=== PATIENT | male | born 1985 | race African-American/Black ===

== ENCOUNTER 2016-07-09 14:02 | Emergency (ER) | payer BC, OTHER ==
--- NOTE | 2016-07-09 14:12 | ER Document Report ---
ED Medical Screen (RME) - General Stated Complaint: POSSIBLE SINUS PROBLEMS Mode of Arrival: Ambulatory Information source: Patient Notes: Patient presents to the emergency department with complaint sinus pain. Reports he's had sinus issues as normal. Reports running a fever last night and cannot get rid of the headache.Took OTC claritan and eye drops without relief of sx. I have greeted and performed a rapid initial assessment of this patient. A comprehensive ED assessment and evaluation of the patient, analysis of test results and completion of the medical decision making process will be conducted by additional ED providers.
[2016-07-09 14:14] VITALS: BP 140/96
--- NOTE | 2016-07-09 14:54 | ER Document Report ---
ED ENT - General Chief Complaint: Sinus Congestion Stated Complaint: POSSIBLE SINUS PROBLEMS Mode of Arrival: Ambulatory Notes: The patient is a 31-year-old male who presents with 3 days sinus congestion and 2 days of clear drainage and redness from his left eye. He took a Claritin without much relief of his symptoms. He denies blurry vision, foreign body sensation in eye, headache, difficulty swallowing, fevers, numbness, tingling, neck pain, chest pain or shortness of breath. TRAVEL OUTSIDE OF THE [place] IN LAST 30 DAYS: No - Related Data Allergies/Adverse Reactions: No Known Allergies Allergy (Unverified 07/09/16 14:14) Past Medical History - General Information source: Patient - Social History Smoking Status: Current Every Day Smoker Chew tobacco use (# tins/day): No Frequency of alcohol use: None Drug Abuse: None Family History: Reviewed & Not Pertinent Renal/ Medical History: Denies: Hx Peritoneal Dialysis Review of Systems - Review of Systems Notes: REVIEW OF SYSTEMS: CONSTITUTIONAL: -fevers, -chills EENT: +left eye discharge, -difficulty swallowing, +nasal congestion CARDIOVASCULAR: -chest pain, -syncope. RESPIRATORY: -cough, -SOB GASTROINTESTINAL: -abdominal pain, -nausea, -vomiting, -diarrhea GENITOURINARY: -dysuria, -hematuria MUSCULOSKELETAL: -back pain, -neck pain SKIN: -rash or skin lesions. HEMATOLOGIC: -easy bruising or bleeding. LYMPHATIC: -swollen, enlarged glands. NEUROLOGICAL: -altered mental status or loss of consciousness, -headache, - neurologic symptoms PSYCHIATRIC: -anxiety, -depression. ALL OTHER SYSTEMS REVIEWED AND NEGATIVE. Physical Exam - Vital signs Vitals: Temp Pulse Resp BP Pulse Ox 98.2 F 103 H 18 140/96 H 97 07/09/16 14:12 07/09/16 14:12 07/09/16 14:12 07/09/16 14:12 07/09/16 14:12 - Notes Notes: PHYSICAL EXAMINATION: GENERAL: Well-appearing, well-nourished and in no acute distress. HEAD: Atraumatic, normocephalic. EYES: Left conjunctival injection with cleared discharge. Fluorescein exam does not reveal any abrasions or ulcers. Pupils equal round and reactive to light, extraocular movements intact, sclera anicteric. ENT: Swollen nasal turbinates. Bilateral maxillary tenderness. Nares patent, oropharynx clear without exudates. Moist mucous membranes. NECK: Normal range of motion, supple without lymphadenopathy LUNGS: Breath sounds clear to auscultation bilaterally and equal. No wheezes rales or rhonchi. HEART: Regular rate and rhythm without murmurs ABDOMEN: Soft, nontender, normoactive bowel sounds. No guarding, no rebound. No masses appreciated. EXTREMITIES: Normal range of motion, no pitting or edema. No cyanosis. NEUROLOGICAL: Cranial nerves grossly intact. Normal speech, normal gait. Normal sensory, motor, and reflex exams. PSYCH: Normal mood, normal affect. SKIN: Warm, Dry, normal turgor, no rashes or lesions noted. Course - Re-evaluation Re-evalutation: Patient appears well. No increased blurry vision, but told him to see slag worker because his vision is 20/40 in both eyes. Instructed him about management of sinus congestion and conjunctivitis. He understands. Given return precautions. - Vital Signs Vital signs: Temp Pulse Resp BP Pulse Ox 98.2 F 103 H 18 140/96 H 97 07/09/16 14:12 07/09/16 14:12 07/09/16 14:12 07/09/16 14:12 07/09/16 14:12 Discharge - Discharge Clinical Impression: Sinus congestion Conjunctivitis Qualifiers: Conjunctivitis type: acute Acute conjunctivitis type: unspecified Laterality: left Qualified Code(s): H10.32 - Unspecified acute conjunctivitis, left eye Condition: Good Disposition: HOME, SELF-CARE Additional Instructions: Conjunctivitis You have an infection in your eye, commonly known as "pink eye." Conjunctivitis causes redness, mild discomfort, itching, and mattering on the eyelids. It is very contagious, so you must be careful to wash your hands after touching your face so you don't pass the infection on to others. Conjunctivitis is caused by both viruses and bacteria. It usually responds quickly to treatment with antibiotic drops. These should be placed in the eye as prescribed (usually every three to four hours while you're awake). If you wear contact lenses, don't put them in your eyes until the infection is cleared and you are no longer using the drops (unless your doctor advises you otherwise). Should you develop increasing eye pain, severe swelling, decreased vision, or fail to improve as expected, please return for re-examination. Sinusitis You have sinusitis, an infection of the sinus cavities of the face. The sinuses are air-filled chambers which open into the inside of the nose. Bacteria and pus fill a sinus, causing pain, drainage, and fever. Avoid chemical fumes, pollens, dusts, and smoke (especially cigarette smoke ). Keep the air humidified in your bedroom and work area and take plenty of liquids by mouth. This condition can be serious if the infection spreads. If your symptoms worsen, or if you develop severe headache, high fever, stiff neck, or a rash, you must call the doctor or return for re-evaluation. Prescriptions: Erythromycin Base [E-Mycin 0.5% Oph Oint 1 gm Unit Dose] 1 applic OS Q8H 7 Days Fluticasone Propionate [Flonase Nasal [place] 50 Mcg/[place] 16 gm] 2 sprays NASL Q12 #1 inhaler Referrals: LANA DE JESUS DO [ACTIVE STAFF] - Follow up as needed
== END 2016-07-09 16:04 | disposition home or self-care (01) ==
LOC: ER 14:02
DX: R09.81 Nasal congestion (principal); H10.32 Unspecified acute conjunctivitis, left eye; F17.200 Nicotine dependence, unspecified, uncomplicated
CPT/HCPCS: 99283

== ENCOUNTER 2016-12-23 16:19 | Emergency (ER) | payer SELFPAY ==
--- NOTE | 2016-12-23 16:52 | ER Document Report ---
ED General - General Chief Complaint: Dog Bite Stated Complaint: POSSIBLE DOG BITE Time Seen by Provider: 12/23/16 16:46 Mode of Arrival: Ambulatory Information source: Patient Notes: 31-year-old male presents with dog bite to left calf. Patient notes the dog is actually known to him he does not want to get the ulnar in trouble, patient denies any other injuries tetanus is up-to-date TRAVEL OUTSIDE OF THE [place] IN LAST 30 DAYS: No - HPI Onset: Just prior to arrival Onset/Duration: Sudden Quality of pain: Achy Severity: Mild Pain Level: 1 Associated symptoms: Other Exacerbated by: Denies Relieved by: Denies Similar symptoms previously: No Recently seen / treated by doctor: No - Related Data Allergies/Adverse Reactions: No Known Allergies Allergy (Verified 12/23/16 16:23) Past Medical History - Social History Smoking Status: Never Smoker Cigarette use (# per day): No Chew tobacco use (# tins/day): No Smoking Education Provided: No Family History: Reviewed & Not Pertinent Renal/ Medical History: Denies: Hx Peritoneal Dialysis Review of Systems - Review of Systems Notes: REVIEW OF SYSTEMS: CONSTITUTIONAL : Denies fever, chills, or sweats. Denies recent illness. EENT: Denies eye, ear, throat, or mouth pain or symptoms. Denies nasal or sinus congestion or discharge. Denies throat, tongue, or mouth swelling or difficulty swallowing. CARDIOVASCULAR: Denies chest pain. Denies palpitations or racing or irregular heart beat. Denies ankle edema. RESPIRATORY: Denies cough, cold, or chest congestion. Denies shortness of breath, difficulty breathing, or wheezing. GASTROINTESTINAL: Denies abdominal pain or distention. Denies nausea, vomiting , or diarrhea. Denies blood in vomitus, stools, or per rectum. Denies black, tarry stools. Denies constipation. GENITOURINARY: Denies difficulty urinating, painful urination, burning, frequency, blood in urine, or discharge. MUSCULOSKELETAL: Denies back or neck pain or stiffness. Denies joint pain or swelling. SKIN: Dog bite HEMATOLOGIC : Denies easy bruising or bleeding. LYMPHATIC: Denies swollen, enlarged glands. NEUROLOGICAL: Denies confusion or altered mental status. Denies passing out or loss of consciousness. Denies dizziness or lightheadedness. Denies headache. Denies weakness or paralysis or loss of use of either side. Denies problems with gait or speech. Denies sensory loss, numbness, or tingling. Denies seizures. PSYCHIATRIC: Denies anxiety or stress. Denies depression, suicidal ideation, or homicidal ideation. ALL OTHER SYSTEMS REVIEWED AND NEGATIVE. Dictation was performed using [employer] voice recognition software PHYSICAL EXAMINATION: GENERAL: Well-appearing, well-nourished and in no acute distress. HEAD: Atraumatic, normocephalic. EYES: Pupils equal round and reactive to light, extraocular movements intact, sclera anicteric, conjunctiva are normal. ENT: Nares patent, oropharynx clear without exudates. Moist mucous membranes. NECK: Normal range of motion, supple without lymphadenopathy LUNGS: Breath sounds clear to auscultation bilaterally and equal. No wheezes rales or rhonchi. HEART: Regular rate and rhythm without murmurs ABDOMEN: Soft, nontender, nondistended abdomen. No guarding, no rebound. No masses appreciated. Musculoskeletal: Normal range of motion, no pitting or edema. No cyanosis. NEUROLOGICAL: Cranial nerves grossly intact. Normal speech, normal gait. Normal sensory, motor exams PSYCH: Normal mood, normal affect. SKIN: Multiple small punctures of the left calf no large wound Physical Exam - Vital signs Vitals: Temp Pulse Resp BP Pulse Ox 98.5 F 99 20 142/76 H 97 12/23/16 16:23 12/23/16 16:23 12/23/16 16:23 12/23/16 16:23 12/23/16 16:23 Course - Re-evaluation Re-evalutation: 12/23/16 17:00 Area was cleansed with Betadine extensively, patient tetanus is already up-to- date the dog is actually known to the patient Patient will be treated with antibiotics and will be given close follow-up After performing a Medical Screening Examination, I estimate there is LOW risk for OPEN FRACTURE, COMPARTMENT SYNDROME, TENDON RUPTURE, ACUTE NEUROVASCULAR INJURY, or RETAINED FOREIGN BODY, thus I consider the discharge disposition reasonable. Also, there is no evidence or peritonitis, sepsis, or toxicity. I have reevaluated this patient multiple times and no significant life threatening changes are noted. The patient and I have discussed the diagnosis and risks, and we agree with discharging home with close follow-up with the understanding that symptoms and presentations can change. We also discussed returning to the Emergency Department immediately if new or worsening symptoms occur. We have discussed the symptoms which are most concerning (e.g., changing or worsening pain, fever, numbness, weakness, cool or painful digits) that necessitate immediate return. - Vital Signs Vital signs: Temp Pulse Resp BP Pulse Ox 98.5 F 99 20 142/76 H 97 12/23/16 16:23 12/23/16 16:23 12/23/16 16:23 12/23/16 16:23 12/23/16 16:23 Discharge - Discharge Clinical Impression: Dog bite of calf Qualifiers: Encounter type: initial encounter Laterality: left Qualified Code(s): S81.852A - Open bite, left lower leg, initial encounter Condition: Stable Disposition: HOME, SELF-CARE Instructions: Animal Bites ([facility]) Additional Instructions: Follow up with your physician tomorrow for further care or return to the ED IMMEDIATELY if symptoms worsen or new concerns occur. If you cannot afford to follow up with your primary care physician a list of low cost clinics have been provided at the end of your discharge papers as well. Prescriptions: Amox Tr/Potassium Clavulanate [Augmentin 875-125 Tablet] 1 tab PO BID 10 Days tablet Forms: Return to Work
[2016-12-23] MEDS ORDERED: IBUPROFEN 600 MG TABLET PO ONE (16:54)
[2016-12-23 18:24] VITALS: BP 147/80
== END 2016-12-23 17:40 | disposition home or self-care (01) ==
LOC: ER 16:19
DX: S81.852A Open bite, left lower leg, initial encounter (principal); W54.0XXA Bitten by dog, initial encounter
CPT/HCPCS: 99283

== ENCOUNTER 2016-12-25 01:16 | Emergency (ER) | payer SELFPAY ==
[2016-12-25 01:34] VITALS: BP 163/86
== END 2016-12-25 02:07 | disposition left against medical advice (07) ==
LOC: ER 01:16
DX: Z53.21 Procedure and treatment not carried out due to patient leaving prior to being seen by health care provider (principal)

== ENCOUNTER 2019-11-13 20:18 | Emergency (ER) | payer SELFPAY ==
[2019-11-14 00:03] VITALS: BP 148/86
--- NOTE | 2019-11-14 02:56 | ER Document Report ---
ED General Pain - General Chief Complaint: Pain All Over Stated Complaint: GENERAL WEAKNESS, SHORTNESS OF BREATH, CONGESTION Time Seen by Provider: 11/14/19 02:55 Mode of Arrival: Ambulatory Information source: Patient Notes: 11/14/19 01:50 - ED Nursing Note by OFELIA FREEMAN Accandi Num: [id number] : 1985 Patient Age: 34 pt presents to ed via pov with c/o chills, cough, weakness, congestion, SOB, AGUILAR, and body aches x3 days. pt states that "I just don't feel right all over". pt denies any travel or sick contact. pt rates body aches as a 4/5 on the pain scale. pt does admit to marijuana use. pt is resting in stretcher, in nad, breathing e/u. 11/14/19 03:26 - ED Nursing Note by OFELIA FREEMAN Accandi Num: [id number] : 1985 Patient Age: 34 this RN went into pt room to start IV and draw blood. pt became very agitated, stating "I don't want you or anyone else putting anything in my body, or injecting anything in my body!" this RN educated pt as to what blood tests were ordered and why they were ordered, and pt stated "I'll leave this bitch right now, I don't care". pt left room and headed towards doorway, this RN asked pt to stay and talk with the MD, pt refused. pt did sign AMA form before leaving, and this RN educated pt as to possible negative side effects of leaving AMA and to come back with any worsening symptoms. pt was escorted out of POD 5 by PCT. TRAVEL OUTSIDE OF THE [place] IN LAST 30 DAYS: No - Related Data Allergies/Adverse Reactions: No Known Allergies Allergy (Verified 12/23/16 16:23) Past Medical History - Social History Smoking Status: Current Every Day Smoker Frequency of alcohol use: None Drug Abuse: Marijuana Family History: Reviewed & Not Pertinent Patient has homicidal ideation: No Renal/ Medical History: Denies: Hx Peritoneal Dialysis Past Surgical History: Reports: Hx Tonsillectomy Physical Exam - Vital signs Vitals: Temp Pulse Resp BP Pulse Ox 99.7 F 97 18 132/95 H 100 11/13/19 20:27 11/13/19 20:27 11/13/19 20:27 11/13/19 20:27 11/13/19 20:27 Course - Vital Signs Vital signs: Temp Pulse Resp BP Pulse Ox 98.0 F 80 16 148/86 H 98 11/13/19 23:57 11/13/19 23:57 11/13/19 23:57 11/13/19 23:57 11/13/19 23:57 Discharge - Discharge Clinical Impression: Weak, Cough Disposition: LEFT WITHOUT BEING SEEN
== END 2019-11-14 03:00 | disposition left against medical advice (07) ==
LOC: ER 20:18
DX: R05 Cough (principal); R53.1 Weakness; R51 Headache; R68.83 Chills (without fever); R06.02 Shortness of breath; F17.200 Nicotine dependence, unspecified, uncomplicated; F12.10 Cannabis abuse, uncomplicated; Z53.29 Procedure and treatment not carried out because of patient's decision for other reasons